=== PATIENT | female | born 1965 | race Caucasian/White ===

== ENCOUNTER 2017-06-12 10:50 | Day surgery (SDC) | payer MEDICAID ==
[~2017-06-12] VITALS: Ht 162.6 cm; Wt 72.6 kg
[2017-06-12] MEDS ORDERED: IOHEXOL 50 ML IV ONE (12:05)
[2017-06-12] MEDS ORDERED: DIPHENHYDRAMINE INJ 50 MG/ML VIAL ONE (12:58)
[2017-06-12] MEDS ORDERED: MIDAZOLAM HCL 2 MG/2 ML VIAL (VERSED) ONE (12:58)
[2017-06-12] MEDS: MIDAZOLAM HCL 5 MG/5 ML VIAL ONE ×2 (13:00→13:02)
[2017-06-12] MEDS ORDERED: MIDAZOLAM HCL 2 MG/2 ML VIAL (VERSED) IVP ONE (15:45)
[2017-06-12] MEDS ORDERED: DIPHENHYDRAMINE INJ 50 MG/ML VIAL IVP ONE (15:45)
[2017-06-12 16:30] VITALS: BP_SYST 122
== END 2017-06-12 14:40 | disposition home or self-care (01) ==
LOC: SDS 10:50
PROVIDERS: ATTEND Internal Medicine
DX: M51.16 Intervertebral disc disorders with radiculopathy, lumbar region (principal); M54.5 Low back pain; M79.1 Myalgia; Z79.899 Other long term (current) drug therapy; Z88.8 Allergy status to other drugs, medicaments and biological substances; F32.9 Major depressive disorder, single episode, unspecified; F41.9 Anxiety disorder, unspecified; J45.909 Unspecified asthma, uncomplicated; Z98.84 Bariatric surgery status; Z90.49 Acquired absence of other specified parts of digestive tract
CPT/HCPCS: 62323; 76000; J1200; J2250; J3465; Q9967

== ENCOUNTER 2018-09-03 10:29 | Day surgery (SDC) | payer MEDICAID ==
[~2018-09-03] VITALS: Ht 162.6 cm; Wt 77.1 kg
[2018-09-03] MEDS ORDERED: DIPHENHYDRAMINE INJ 50 MG/ML VIAL ONE (12:34)
[2018-09-03] MEDS ORDERED: MIDAZOLAM HCL 5 MG/5 ML VIAL ONE ×2 (12:34→13:17)
[2018-09-03] MEDS ORDERED: IOHEXOL 300 mgI/mL, 50 mL INFUS..BTL IV ONE (12:40)
[2018-09-03] MEDS ORDERED: BUPIVACAINE /PF 0.25% 30 ML VIAL INJ ONE (12:40)
[2018-09-03] MEDS ORDERED: LR 1,000 ML IV.SOLN IV ONE (12:40)
[2018-09-03] MEDS ORDERED: methylPREDNISolone ACETATE 40 MG/ML IM ONE (12:40)
[2018-09-03] MEDS ORDERED: LIDOCAINE 2%, 20 ML MDV INJ ONE (12:40)
[2018-09-03 17:57] VITALS: BP_SYST 139
== END 2018-09-03 14:25 | disposition home or self-care (01) ==
LOC: SDS 10:29 → SMU 10:29 → SDS 14:25
PROVIDERS: ATTEND Internal Medicine
DX: M53.3 Sacrococcygeal disorders, not elsewhere classified (principal); M54.5 Low back pain; Z79.899 Other long term (current) drug therapy; Z98.890 Other specified postprocedural states; Z88.8 Allergy status to other drugs, medicaments and biological substances; G89.4 Chronic pain syndrome; M51.16 Intervertebral disc disorders with radiculopathy, lumbar region; F32.9 Major depressive disorder, single episode, unspecified; F41.9 Anxiety disorder, unspecified; J45.909 Unspecified asthma, uncomplicated
CPT/HCPCS: 27096; J1030; J1200; J2001; J2250; J3490; J7120; Q9967; 76000

== ENCOUNTER 2018-12-10 18:08 | Emergency (ER) | payer MEDICAID ==
[~2018-12-10] VITALS: Ht 162.6 cm; Wt 77.1 kg
[2018-12-10 18:26] VITALS: BP_SYST 180
[2018-12-10] MEDS ORDERED: DIPHENHYDRAMINE INJ 50 MG/ML VIAL IM ONE (19:45)
[2018-12-10] MEDS ORDERED: MORPHINE SULFATE 10 MG/ML VIAL IM ONE (19:45)
[2018-12-10 21:00] LABS: BILIRUBIN,URINE NEGATIVE (NEGATIVE); BLOOD, URINE NEGATIVE (NEGATIVE); CLARITY/URINE CLEAR (CLEAR); COLOR,URINE YELLOW (YELLOW); GLUCOSE,URINE NEGATIVE (NEGATIVE); KETONES,URINE NEGATIVE (NEGATIVE); LEUKOCYTE ESTERASE ,URINE 3+ (NEGATIVE); NITRITE, URINE NEGATIVE (NEGATIVE); PROTEIN URINE NEGATIVE (NEGATIVE)
[2018-12-10 21:27] VITALS: BP_SYST 153
[2018-12-10 21:33] LABS: BACTERIA,URINE FEW /HPF (None Seen); MUCUS,URINE None Seen /LPF (None Seen); RBC,URINE NONE SEEN /HPF (0-3)
== END 2018-12-10 21:27 | disposition home or self-care (01) ==
LOC: SED 18:08
DX: M54.10 Radiculopathy, site unspecified (principal); N39.0 Urinary tract infection, site not specified; R03.0 Elevated blood-pressure reading, without diagnosis of hypertension; K21.9 Gastro-esophageal reflux disease without esophagitis; I10 Essential (primary) hypertension; J45.909 Unspecified asthma, uncomplicated; Z88.8 Allergy status to other drugs, medicaments and biological substances
CPT/HCPCS: 81000; 81025; 87086; 96372; 99283; J1200; J2270